=== PATIENT | female | born 1955 | race Caucasian/White ===

== ENCOUNTER 2017-11-23 11:52 | Emergency (ER) | payer OTHER ==
[2017-11-23] MEDS ORDERED: Sodium Chloride 0.9% 10 ML Syringe FLUSH PRN (12:10)
--- NOTE | 2017-11-23 12:10 | EDM.PDOC ---
ED HPI GENERAL MEDICAL PROBLEM - General Chief Complaint: Headache Stated Complaint: DIZZY Time Seen by Provider: 11/23/17 12:10 Source of Information: Reports: Patient, Family, RN, RN Notes Reviewed History Limitations: Reports: Uncooperative - History of Present Illness INITIAL COMMENTS - FREE TEXT/NARRATIVE: Pt presents to the ER by POV with c/o onset of an "atypical migraine" this morning with dizziness and vomiting. On arrival the pt is uncooperative, flailing about, nearly falling out of the wheel chair, and screaming. Pt's sister is inappropriately hostile and demanding. It is unclear if there is underlying mental illness, or if they are severely anxious. Once in the exam room, both were able to gain composure and become more cooperative. The pt's sister states that she was very angry that the pt was not brought straight into an ER room and immediately evaluated. She does not accept that the ER was full, and no rooms were available. The pt states that this is a chronic and recurrent problem, and that she needs IV fluid and IV zofran. She denies pain. Pt is visiting from [place], and states her neurologist has performed extensive lab and imaging tests for 3 years , and has determined that these episodes of dizziness and vomiting are caused by non-painful atypical migraines. Pt makes it clear that she will not permit any type of brain imaging today, as "all that has been done repeatedly" and nothing has been found on the images. Onset: Today, Sudden Duration: Hour(s): (approx. 1 hour ago.), Constant Location: Reports: Head, Generalized Quality: Reports: Other (denies pain) Severity: Severe Improves with: Reports: None Worsens with: Reports: Movement Associated Symptoms: Reports: No Other Symptoms - Related Data Home Meds: Home Meds lamoTRIgine [Lamictal] 400 mg PO DAILY 11/23/17 [History] Past Medical History Neurological History: Reports: Migraines (atypical) Social & Family History - Family History Family Medical History: Noncontributory - Living Situation & Occupation Living situation: Reports: , with Spouse ED ROS GENERAL - Review of Systems Review Of Systems: ROS reveals no pertinent complaints other than HPI. ED EXAM, DIZZINESS - Physical Exam Exam: See Below Exam Limited By: Uncooperative General Appearance: Alert, WD/WN, Anxious Eye Exam: Bilateral Eye: EOMI, Normal Inspection (no photo phobia), PERRL Ears: Normal External Exam, Normal Canal, Hearing Grossly Normal, Normal TMs Nose: Normal Inspection, Normal Mucosa, No Blood Throat/Mouth: Normal Lips, Normal Teeth, Normal Gums, Normal Oropharynx, Normal Voice, No Airway Compromise, Other (dry oral membranes) Head Exam: Atraumatic, Normocephalic Neck: Normal Inspection, Supple, Non-Tender, Full Range of Motion. No: Carotid Bruit, Lymphadenopathy (L), Lymphadenopathy (R) Respiratory/Chest: No Respiratory Distress, Lungs Clear, Normal Breath Sounds, No Accessory Muscle Use, Chest Non-Tender Cardiovascular: Regular Rate, Rhythm, No Edema GI/Abdominal: Normal Bowel Sounds, Soft, Non-Tender, No Distention (Female) Exam: Deferred Rectal (Female) Exam: Deferred Neurological: Alert, CN II-XII Intact, No Motor/Sensory Deficits, Oriented x 3 Back Exam: Normal Inspection Extremities: Normal Inspection, Normal Range of Motion, Non-Tender, No Pedal Edema, Normal Capillary Refill Psychiatric: Anxious Skin Exam: Warm, Dry, Intact, Normal Color, No Rash Course - Vital Signs Last Recorded V/S: Last Vital Signs Temp 36.5 C 11/23/17 13:55 Pulse 68 11/23/17 13:55 Resp 16 11/23/17 13:55 BP 89/57 L 11/23/17 13:55 Pulse Ox 100 11/23/17 13:55 - Orders/Labs/Meds Orders: Active Orders 24 hr Category Date Time Status Peripheral IV Care [RC] . DIRECTED Care 11/23/17 12:11 Active DRUG SCREEN URINE BIORAD [URCHEM] Stat Lab 11/23/17 12:10 Ordered UA W/MICROSCOPIC [URIN] Stat Lab 11/23/17 12:10 Ordered Sodium Chloride 0.9% [Saline Flush] Med 11/23/17 12:10 Active 10 ml FLUSH ASDIRECTED PRN Peripheral IV Insertion Adult [OM.PC] Stat Oth 11/23/17 12:10 Ordered Medication Orders Sodium Chloride (Saline Flush) 10 ml FLUSH ASDIRECTED PRN PRN Reason: Keep Vein Open Last Admin: 11/23/17 12:44 Dose: 10 ml Labs: Laboratory Tests 11/23/17 11/23/17 11/23/17 Range/Units 12:18 12:18 12:18 WBC 11.8 H (5.0-10.0) 10^3/uL RBC 3.99 L (4.2-5.4) 10^6/uL Hgb 12.8 (12.0-16.0) g/dL Hct 39.2 (37.0-47.0) % MCV 98.2 (80-100) fL MCH 32.1 (27.0-34.0) pg MCHC 32.7 L (33.0-35.0) g/dL Plt Count 492 H (150-450) 10^3/uL Neut % (Auto) 82.7 H (42.2-75.2) % Lymph % (Auto) 12.0 L (20.5-50.1) % [place] % (Auto) 3.5 (2-8) % Eos % (Auto) 0.8 L (1.0-3.0) % Baso % (Auto) 1.0 (0.0-1.0) % Sodium 137 (135-145) mmol/L Potassium 3.3 L (3.6-5.0) mmol/L Chloride 103 (101-111) mmol/L Carbon Dioxide 21.0 (21.0-31.0) mmol/L Anion Gap 16.3 BUN 11 (7-18) mg/dL Creatinine 0.8 (0.6-1.3) mg/dL Est Cr Clr Drug Dosing 55.15 mL/min Estimated GFR (MDRD) > 60 BUN/Creatinine Ratio 13.75 Glucose 183 H (74-105) mg/dL Calcium 9.3 (8.4-10.2) mg/dl Total Bilirubin 0.5 (0.2-1.0) mg/dL AST 26 (10-42) IU/L ALT 25 (10-60) IU/L Alkaline Phosphatase 142 H (42-121) IU/L C-Reactive Protein 12.1 H (0.0-1.3) mg/dL Total Protein 6.7 (6.7-8.2) g/dl Albumin 3.3 (3.2-5.5) g/dl Globulin 3.4 Albumin/Globulin Ratio 0.97 Ethyl Alcohol < 5 mg/dL Meds: Medications Generic Name Dose Route Start Last Admin Trade Name Freq PRN Reason Stop Dose Admin Sodium Chloride 10 ml 07/07/18 12:10 11/23/17 12:44 Saline Flush FLUSH 10 ml ASDIRECTED PRN Administration Keep Vein Open Discontinued Medications Generic Name Dose Route Start Last Admin Trade Name Ashwin PRN Reason Stop Dose Admin Sodium Chloride 1,000 mls @ 999 mls/hr 11/23/17 12:11 11/23/17 12:44 Normal Saline IV 11/23/17 13:11 999 mls/hr .BOLUS ONE Administration Sodium Chloride 1,000 mls @ 999 mls/hr 11/23/17 13:46 11/23/17 13:49 Normal Saline IV 11/23/17 14:46 999 mls/hr .BOLUS ONE Administration Ondansetron HCl 4 mg 11/23/17 12:11 11/23/17 12:45 Zofran IV 11/23/17 12:12 4 mg ONETIME ONE Administration Ondansetron HCl 4 mg 11/23/17 12:42 11/23/17 13:50 Zofran IV 11/23/17 12:43 4 mg ONETIME ONE Administration Departure - Departure Time of Disposition: 16:30 Disposition: Home, Self-Care 01 Condition: Fair Clinical Impression: History of atypical migraine, Hypokalemia Central nervous system origin vertigo Qualifiers: Laterality: unspecified laterality Qualified Code(s): H81.49 - Vertigo of central origin, unspecified ear Vomiting Qualifiers: Vomiting type: unspecified Vomiting Intractability: intractable Nausea presence : unspecified Qualified Code(s): R11.10 - Vomiting, unspecified - Discharge Information Instructions: Recurrent Migraine Headache, Hypokalemia Referrals: PCP,Not In Area [Primary Care Provider] - Forms: ED Department Discharge Additional Instructions: Rx: Zofran 4mg ODT Eat bananas, or other high potassium foods, and have your doctor recheck your potassium next week. Follow up with your specialist as needed. - My Orders Last 24 Hours: My Active Orders 11/23/17 12:10 DRUG SCREEN URINE BIORAD [URCHEM] Stat UA W/MICROSCOPIC [URIN] Stat Sodium Chloride 0.9% [Saline Flush] 10 ml FLUSH ASDIRECTED PRN Peripheral IV Insertion Adult [OM.PC] Stat 11/23/17 12:11 Peripheral IV Care [RC] . DIRECTED - Assessment/Plan Last 24 Hours: My Active Orders 11/23/17 12:10 DRUG SCREEN URINE BIORAD [URCHEM] Stat UA W/MICROSCOPIC [URIN] Stat Sodium Chloride 0.9% [Saline Flush] 10 ml FLUSH ASDIRECTED PRN Peripheral IV Insertion Adult [OM.PC] Stat 11/23/17 12:11 Peripheral IV Care [RC] . DIRECTED
[2017-11-23] MEDS ORDERED: Sodium Chloride 0.9% 1,000 ML IV ONE ×2 (12:11→13:46)
[2017-11-23] MEDS ORDERED: Ondansetron 4 MG/2 ML SDV IV ONE ×2 (12:11→12:42)
[2017-11-23 12:44] LABS: ANION GAP 16.3; CHLORIDE,CL 103 mmol/L (101-111); SODIUM,NA 137 mmol/L (135-145)
== END 2017-11-23 17:21 | disposition home or self-care (01) ==
LOC: DL.ED 11:52
DX: H81.49 Vertigo of central origin, unspecified ear (principal); R11.10 Vomiting, unspecified; E87.6 Hypokalemia; G43.909 Migraine, unspecified, not intractable, without status migrainosus; Z79.899 Other long term (current) drug therapy
CPT/HCPCS: 36415; 80053; 80305; 81001; 85025; 86140; 96361; 96374; 96376; 99284; G0480; J2405; J7030; J7050